=== PATIENT | female | born 1980 ===

== ENCOUNTER 2017-01-28 09:49 | Emergency (ER) | payer SELFPAY ==
[2017-01-28 10:04] VITALS: O2SAT 99
[2017-01-28 10:05] VITALS: BMI 34.3
[2017-01-28] MEDS ORDERED: Sodium Chloride 0.9% 1,000 ML IV STA (10:40)
--- NOTE | 2017-01-28 11:23 | ED PDOC ---
HPI: CCC, URI, Sore Throat Time Seen by Provider: 01/28/17 10:12 Chief Complaint (Nursing): Flu-like Symptoms Chief Complaint (Provider): Flu-like Symptoms History Per: Patient History/Exam Limitations: no limitations Onset/Duration Of Symptoms: Days Current Symptoms Are (Timing): Still Present Location Of Pain: Throat, Diffuse Myalgias, Headache Sick Contacts (Context): None Associated Symptoms: Fever, Cough Ear Symptoms: Bilateral: None Severity: Mild Additional Complaint(s): Patient is a 36 year old female who presents to ED for 2 weeks of dry that appears to be worsening. Patient notes 3-4 days of fever, chills, body aches, nausea, fatigue and slight throbbing headache. Patient denies chest pain, SOB or wheezing. Denies recent sick contacts or recent travel. Past Medical History Reviewed: Historical Data, Nursing Documentation, Vital Signs Vital Signs: Last Vital Signs Temp 102 F H 01/28/17 10:03 Pulse 86 01/28/17 10:03 Resp BP 128/65 01/28/17 10:03 Pulse Ox 99 01/28/17 13:54 - Medical History PMH: Anxiety, Bipolar Disorder (per old chart), Depression - Surgical History Surgical History: No Surg Hx, (x2) - Family History Family History: States: Unknown Family Hx, Diabetes, Hypertension - Living Arrangements Living Arrangements: With Family - Immunization History Hx Tetanus Toxoid Vaccination: No Hx Influenza Vaccination: No Hx Pneumococcal Vaccination: No - Home Medications Home Medications: Ambulatory Orders Medication Instructions Recorded Acetaminophen [Tylenol] 650 mg PO Q6 PRN #30 tablet 03/25/16 Cyclobenzaprine [Flexeril] 5 mg PO BID PRN #12 tab 03/25/16 Famotidine [Pepcid] 20 mg PO BID PRN #15 tab 03/25/16 Vilazodone HCl [Viibryd] 10 mg PO BID 03/25/16 Ondansetron [Zofran] 4 mg PO Q6H PRN #10 tab 06/12/16 Ibuprofen [Motrin] 600 mg PO TID PRN #30 tab 01/28/17 - Allergies Allergies/Adverse Reactions: Allergies Allergy/AdvReac Type Severity Reaction Status Date / Time No Known Allergies Allergy Verified 01/28/17 10:08 Review of Systems ROS Statement: Except As Marked, All Systems Reviewed And Found Negative Constitutional: Positive for: Fever, Chills ENT: Negative for: Ear Pain Cardiovascular: Negative for: Chest Pain Respiratory: Positive for: Cough. Negative for: Shortness of Breath, Sputum, Wheezing Gastrointestinal: Positive for: Nausea. Negative for: Vomiting, Abdominal Pain Musculoskeletal: Positive for: Other (body aches). Negative for: Neck Pain Skin: Negative for: Rash Neurological: Positive for: Headache. Negative for: Dizziness Physical Exam - Reviewed Nursing Documentation Reviewed: Yes Vital Signs Reviewed: Yes - Physical Exam Appears: Positive for: Non-toxic, No Acute Distress Skin: Positive for: Normal Color, Warm (febrile) Eye Exam: Positive for: EOMI, PERRL, Conjunctival injection (slight to bilateral eyes ) ENT: Positive for: Normal ENT Inspection ((+)DMM ), TM Is/Are (clear bilaterally ), Pharyngeal Erythema. Negative for: Tonsillar Exudate, Tonsillar Swelling Neck: Positive for: Normal, Painless ROM Cardiovascular/Chest: Positive for: Regular Rate, Rhythm. Negative for: Murmur Respiratory: Positive for: Normal Breath Sounds. Negative for: Respiratory Distress Extremity: Positive for: Normal ROM Neurologic/Psych: Positive for: Alert, Oriented - Laboratory Results Result Diagrams: 01/28/17 11:15 01/28/17 11:15 Urine POC: Negative Urine dip results: Negative for: Leukocyte Esterase, Blood, Nitrate, Ketones, Glucose, Bilirubin, Protein - ECG O2 Sat by Pulse Oximetry: 99 (RA) Pulse Ox Interpretation: Normal - Radiology X-Ray: Interpreted by Me, Viewed By Me, Read By Radiologist X-Ray Interpretation: No Acute Disease Medical Decision Making Medical Decision Making: Time: 1035 Initial impression: Likely influenza r/o pneumonia and UTI Initial plan: -- CMP -- Lipase -- Urine dip -- CBC -- CXR -- NSG, Toradol and Tylenol -- Flu swab -- Rapid strep Scribe Attestation: Documented by Sonya Llanes acting as a scribe for Giles Lopes PA-C. MD Scribe Attestation: All medical record entries made by the Scribe were at my direction and personally dictated by me. I have reviewed the chart and agree that the record accurately reflects my personal performance of the history, physical exam, medical decision making, and the department course for this patient. I have also personally directed, reviewed, and agree with the discharge instructions and disposition. Labs reviewed 14k wbc count no bands, no acute findings feeling better. CXR negative given symptoms discussed likely viral nature. repeat vitals wnl Disposition - Clinical Impression Clinical Impression: Influenza-like symptoms - Patient ED Disposition Is Patient to be Admitted: No Counseled Patient/Family Regarding: Studies Performed, Diagnosis, Need For Followup, Rx Given - Disposition Referrals: [facility] [Outside] Sid Bernal MD [Staff Provider] - Disposition: Routine/Home Disposition Time: 14:42 Condition: IMPROVED Additional Instructions: lots of fluids motrin and tylenol for fever follow up without fail for re-evaluation in 1-2 days. Prescriptions: Ibuprofen [Motrin] 600 mg PO TID PRN #30 tab PRN Reason: Other Instructions: Viral Syndrome (ED) Forms: [facility] ED School/Work Excuse Print Language: ISRAELI
[2017-01-28 11:30] LABS: BASO # 0.2 K/uL (0.0-0.2); BASO % 1.6 % (0.0-2.0); EOS % 0.2 % (0.0-4.0); HEMATOCRIT 40.2 % (34.0-47.0); LYMPH # 1.9 K/uL (1.0-4.3); LYMPH % 13.5 % (20.0-40.0); MEAN CORPUSCULAR HEMOGLOBIN 29.9 pg (27.0-31.0); MEAN CORPUSCULAR HGB CONC 33.9 g/dL (33.0-37.0); MEAN PLATELET VOLUME 8.2 fl (7.2-11.7); MONO # 1.1 K/uL (0.0-0.8); MONO % 7.6 % (0.0-10.0); NEUT # 10.9 K/uL (1.8-7.0); NEUT % 77.1 % (50.0-75.0); RED CELL DISTRIBUTION WIDTH 14.9 % (11.5-14.5); WHITE BLOOD COUNT 14.1 K/uL (4.8-10.8)
[2017-01-28 11:41] LABS: ALB/GLOB RATIO 1.1 (1.0-2.1); ALKALINE PHOSPHATASE 109 U/L (38-126); ALT/SGPT 42 U/L (9-52); AST/SGOT 25 U/L (14-36); BILIRUBIN,TOTAL 0.3 mg/dl (0.2-1.3); BLOOD UREA NITROGEN 5 mg/dl (7-17); CALCIUM 9.2 mg/dL (8.4-10.2); CARBON DIOXIDE 23 mmol/L (22-30); CHLORIDE 105 mmol/L (98-107); GFR AFRICAN-AMERICAN > 60; GLUCOSE,RANDOM 92 mg/dL (65-105); LIPASE 85 U/L (23-300); SODIUM 134 mmol/l (132-148); TOTAL PROTEIN 7.8 G/DL (6.3-8.2)
--- NOTE | 2017-01-28 14:07 | RAD ---
HISTORY: cough, fever COMPARISON: 01/24/2009 TECHNIQUE: Chest PA and lateral FINDINGS: LUNGS: No active pulmonary disease. PLEURA: No significant pleural effusion identified. No pneumothorax apparent. CARDIOVASCULAR: Normal. OSSEOUS STRUCTURES: No significant abnormalities. VISUALIZED UPPER ABDOMEN: Normal. OTHER FINDINGS: None. IMPRESSION: No infiltrate. No plain radiographic evidence of granulomatous disease.
[2017-01-28 15:09] VITALS: BP 109/60; PULSE 82; RESP 18; TEMP 98.4
== END 2017-01-28 14:50 | disposition home or self-care (01) ==
LOC: H.ER 09:49
DX: B34.9 Viral infection, unspecified (principal); R50.9 Fever, unspecified; R05 Cough; F31.9 Bipolar disorder, unspecified; R51 Headache
CPT/HCPCS: 71020; 80053; 81025; 82948; 83690; 85025; 87070; 87430; 87804; 96374; 99283; J1885; J7040

== ENCOUNTER 2018-12-28 15:16 | Emergency (ER) | payer OTHER ==
[2018-12-28 15:16] VITALS: BMI 34.3
[2018-12-28 15:44] VITALS: RESP 18; TEMP 98.2
--- NOTE | 2018-12-28 17:01 | ED PDOC ---
HPI: Back Time Seen by Provider: 12/28/18 16:55 Chief Complaint (Nursing): Back Pain Chief Complaint (Provider): Back Pain History Per: Patient History/Exam Limitations: no limitations Onset/Duration Of Symptoms: Intermittent Episodes, Worse Since (this morning) Current Symptoms Are (Timing): Still Present Additional Complaint(s): 38 year old female presents to the ED for evaluation of lower back pain radiating down both her legs. She notes she has intermittent episodes of this pain, but usually it resolves on its own. This morning, she states she woke up and the pain was so debilitating that she could not walk, prompting ED visit. Otherwise denies trauma, falls, or injuries. PMD: none provided Past Medical History Reviewed: Historical Data, Nursing Documentation, Vital Signs Vital Signs: Last Vital Signs Temp 98.2 F 12/28/18 15:40 Pulse 74 12/28/18 15:40 Resp 18 12/28/18 15:40 BP 127/82 12/28/18 15:40 Pulse Ox 99 12/28/18 15:40 - Medical History PMH: Anxiety, Bipolar Disorder (per old chart), Depression - Surgical History Surgical History: (x2) - Family History Family History: States: Diabetes, Hypertension - Social History Current smoker - smoking cessation education provided: No Alcohol: None Drugs: Denies - Immunization History Hx Tetanus Toxoid Vaccination: No Hx Influenza Vaccination: No Hx Pneumococcal Vaccination: No - Home Medications Home Medications: Ambulatory Orders Medication Instructions Recorded Acetaminophen [Tylenol] 650 mg PO Q6 PRN #30 tablet 03/25/16 Cyclobenzaprine [Flexeril] 5 mg PO BID PRN #12 tab 03/25/16 Famotidine [Pepcid] 20 mg PO BID PRN #15 tab 03/25/16 Vilazodone HCl [Viibryd] 10 mg PO BID 03/25/16 Ondansetron [Zofran] 4 mg PO Q6H PRN #10 tab 06/12/16 Ibuprofen [Motrin] 600 mg PO TID PRN #30 tab 01/28/17 Cyclobenzaprine [Flexeril] 10 mg PO TID #27 tab 12/28/18 Diclofenac Potassium 50 mg PO BID #20 tablet 12/28/18 - Allergies Allergies/Adverse Reactions: Allergies Allergy/AdvReac Type Severity Reaction Status Date / Time No Known Allergies Allergy Verified 01/28/17 10:08 Review of Systems ROS Statement: Except As Marked, All Systems Reviewed And Found Negative Musculoskeletal: Positive for: Back Pain (lower radiating into both legs) Physical Exam - Reviewed Nursing Documentation Reviewed: Yes Vital Signs Reviewed: Yes - Physical Exam Appears: Positive for: Well, No Acute Distress Skin: Positive for: Normal Color, Warm Neck: Positive for: Normal, Painless ROM Cardiovascular/Chest: Positive for: Regular Rate, Rhythm Respiratory: Positive for: Normal Breath Sounds. Negative for: Respiratory Distress Gastrointestinal/Abdominal: Positive for: Normal Exam, Soft. Negative for: Tenderness Back: Positive for: Other (seated straight leg raise: positive in left leg at 25 degrees, positive in right leg at 30 degrees). Negative for: L CVA Tenderness, R CVA Tenderness, Vertebral Tenderness Neurologic/Psych: Positive for: Alert, Oriented (x3). Negative for: Motor/Sensory Deficits - ECG O2 Sat by Pulse Oximetry: 99 (RA) Pulse Ox Interpretation: Normal Medical Decision Making Medical Decision Making: Time: 1707 Initial Impression: sciatica Initial Plan: --Secondary to patient driving home, she was informed that she would not be given Valium, which is traditionally a good medication for sciatic pain. Discussed need for PMD, pain management, and physical therapy for this chronic issue, and patient verbalizes understanding. --U-preg --Decadron 10mg IM --Flexeril 10mg PO --Toradol 60mg IM --Tylenol 975mg PO --Urinalysis Scribe Attestation: Documented by Soumya Mccarty, acting as a scribe for Néstor Jaffe PA-C. Provider Scribe Attestation: All medical record entries made by the Scribe were at my direction and personally dictated by me. I have reviewed the chart and agree that the record accurately reflects my personal performance of the history, physical exam, medical decision making, and the department course for this patient. I have also personally directed, reviewed, and agree with the discharge instructions and disposition. Disposition - Clinical Impression Clinical Impression: Sciatica - Patient ED Disposition Is Patient to be Admitted: No Doctor Will See Patient In The: Office Counseled Patient/Family Regarding: Diagnosis, Need For Followup, Rx Given - Disposition Referrals: [facility] [Outside] Disposition: Routine/Home Disposition Time: 18:06 Condition: STABLE Prescriptions: Cyclobenzaprine [Flexeril] 10 mg PO TID #27 tab Diclofenac Potassium 50 mg PO BID #20 tablet Instructions: Sciatica (DC), Sciatica, Sciatica Exercises Forms: [facility] (Slovak)
[2018-12-28 18:22] VITALS: BP 130/88; PULSE 80; O2SAT 100
== END 2018-12-28 18:20 | disposition home or self-care (01) ==
LOC: H.ER 15:16
DX: M54.30 Sciatica, unspecified side (principal)
CPT/HCPCS: 81025; 96372; 99283; J1100; J1885